=== PATIENT | female | born 1990 | race Caucasian/White ===

== ENCOUNTER 2023-07-20 07:43 | Emergency (ER) | payer MEDICAID ==
[~2023-07-20] VITALS: Ht 157.5 cm; Wt 61.8 kg
[~2023-07-20 07:43] MED LIST: ONDA4TAB12 PO
[2023-07-20 07:47] VITALS: TEMP 98.7
[2023-07-20 08:19] LABS: URINE HCG NEGATIVE (NEG)
[2023-07-20 08:22] LABS: BILIRUBIN,URINE MODERATE (Neg); CLARITY,URINE CLOUDY (Clear); COLOR,URINE YELLOW (Yellow); GLUCOSE, URINE NEGATIVE (Neg); KETONES,URINE >=80 mg/dl (Neg); LEUKOCYTE ESTERASE ,URINE TRACE (Neg); NITRITES, URINE NEGATIVE (Neg); OCCULT BLOOD,URINE MODERATE (Neg); PROTEIN,URINE 30 mg/dl (Neg)
[2023-07-20 08:32] LABS: BASOPHILS % (AUTO) 0.6 % (0-1); EOSINOPHILS # (AUTO) 0.1 X10'3 (0-0.9); EOSINOPHILS % (AUTO) 2.1 % (0-6); HEMATOCRIT 39.2 % (35.0-45.0); HEMOGLOBIN 13.6 g/dl (12.0-16.0); LYMPHOCYTES # (AUTO) 1.9 X10'3 (1.1-4.8); LYMPHOCYTES % (AUTO) 28.5 % (21-51); MEAN CORPUSCULAR HEMOGLOBIN 31.9 PG (27.0-31.0); MEAN CORPUSCULAR HGB CONC 34.6 g/dL (33.0-36.5); MEAN PLATELET VOLUME 9.3 FL (7.4-10.4); MONOCYTES # (AUTO) 0.5 X10'3 (0-0.9); MONOCYTES % (AUTO) 7.6 % (2-12); NEUTROPHILS % (AUTO) 61.2 % (42-75); PLATELET COUNT 229 X10'3 (140-440); RED BLOOD COUNT 4.26 X10'6 (4.20-5.60); RED CELL DISTRIBUTION WIDTH 12.9 % (11.5-14.5); WHITE BLOOD COUNT 6.5 X10'3 (4.5-11.0)
[2023-07-20 08:38] LABS: UA COLLECTION TYPE CLN CATCH MIDSTREAM
[2023-07-20 08:39] LABS: MUCUS STRANDS MANY /LPF (Neg); SQUAMOUS EPITHELIAL CELL,UR MANY /LPF (FEW)
[2023-07-20 08:40] LABS: CAL OXALATE CRYSTALS 2+ /HPF (NEGATIVE)
[2023-07-20 08:41] LABS: BACTERIA,URINE 1+ /HPF (Neg); HYALINE CASTS 0-3 /LPF (NEGATIVE)
[2023-07-20 08:42] LABS: ALANINE AMINOTRANSFERASE 28 U/L (12-78); ALBUMIN 4.4 G/DL (3.4-5.0); ALBUMIN/GLOBULIN RATIO 1.4 (1.1-1.5); ALKALINE PHOSPHATASE 73 IU/L (46-116); ANION GAP 10 (8-16); ASPARTATE AMINO TRANSFERASE 18 U/L (10-37); BILIRUBIN,TOTAL 0.8 MG/DL (0.1-1.0); BLOOD UREA NITROGEN 16 MG/DL (7-18); CALCIUM 9.7 MG/DL (8.5-10.1); CHLORIDE 105 MMOL/L (99-107); CREATININE 1.14 MG/DL (0.40-0.90); GLUCOSE 97 MG/DL (70-104); LIPASE 50 U/L (73-393); SODIUM 143 MMOL/L (135-145); TOTAL CARBON DIOXIDE 28.4 MMOL/L (24-32); TOTAL PROTEIN 7.6 G/DL (6.4-8.2); eCRCL 57 ML/MIN; eGFR 56 ML/MIN
[2023-07-20 08:55] LABS: POTASSIUM 2.9 MMOL/L (3.5-5.1)
[2023-07-20] MEDS: normal saline 1000ML IV soln IVB ONE ×2 (09:21→10:30)
[2023-07-20] MEDS: ondansetron/PF 4mg/2ml inj IV ONE (09:34)
[2023-07-20] MEDS: ketorolac trometh. 30mg/ml inj. IV ONE (09:35)
[2023-07-20] MEDS: potassium Cl 40MEQ/1/2NS 520ml 520 ML IV ONE (10:01)
[2023-07-20 10:02] VITALS: BP 140/94; PULSE 73; RESP 19; O2SAT 99
[2023-07-20] MEDS: CefTRIAXone 2gm/D5W 50ml BAG 50 ML IV ONE (11:58)
[2023-07-20] MEDS ORDERED: ONDA4TAB12 PO (12:12)
[2023-07-20] MEDS ORDERED: CEPH-585 PO (12:12)
== END 2023-07-20 13:05 | disposition home or self-care (01) ==
LOC: ER 07:43
DX: N39.0 Urinary tract infection, site not specified (principal); E87.6 Hypokalemia; R10.13 Epigastric pain; Z79.2 Long term (current) use of antibiotics
CPT/HCPCS: 36415; 74176; 80053; 81001; 81025; 83690; 85025; 96365; 96367; 96375; 99285; J0696; J1885; J2405; J3480; J7030

== ENCOUNTER 2023-08-17 07:37 | Emergency (ER) | payer MEDICAID ==
[~2023-08-17] VITALS: Ht 157.5 cm; Wt 61.4 kg
[~2023-08-17 07:37] MED LIST changes: +CEPH-585 PO; +DICY10CA88 PO; +FAMO-128 PO; +METO5TAB85 PO; +PANT-47 PO; +SIME125C PO; +SUCR1ORA12 PO
--- NOTE | 2023-08-17 07:48 | NUR ---
floating checking to see if there is anything i can help with awaiting lab draw
[2023-08-17 08:07] VITALS: TEMP 98.6
--- NOTE | 2023-08-17 08:16 | NUR ---
Evan adams in [place] - 08/17/23 at 0908 by GARETH floating and will help nurse as needed with patient
[2023-08-17 08:33] LABS: EOSINOPHILS # (AUTO) 0.1 X10'3 (0-0.9); EOSINOPHILS % (AUTO) 2.6 % (0-6); HEMATOCRIT 38.8 % (35.0-45.0); HEMOGLOBIN 13.4 g/dl (12.0-16.0); LYMPHOCYTES # (AUTO) 1.1 X10'3 (1.1-4.8); LYMPHOCYTES % (AUTO) 26.9 % (21-51); MEAN CORPUSCULAR HEMOGLOBIN 32.1 PG (27.0-31.0); MEAN CORPUSCULAR HGB CONC 34.6 g/dL (33.0-36.5); MEAN CORPUSCULAR VOLUME 92.9 FL (78-98); MONOCYTES # (AUTO) 0.3 X10'3 (0-0.9); MONOCYTES % (AUTO) 6.7 % (2-12); NEUTROPHILS # (AUTO) 2.6 X10'3 (1.8-7.7); NEUTROPHILS % (AUTO) 62.8 % (42-75); PLATELET COUNT 199 X10'3 (140-440); RED BLOOD COUNT 4.18 X10'6 (4.20-5.60); RED CELL DISTRIBUTION WIDTH 13.7 % (11.5-14.5); WHITE BLOOD COUNT 4.1 X10'3 (4.5-11.0)
[2023-08-17 08:45] LABS: ALANINE AMINOTRANSFERASE 21 U/L (12-78); ALBUMIN 4.4 G/DL (3.4-5.0); ALBUMIN/GLOBULIN RATIO 1.4 (1.1-1.5); ALKALINE PHOSPHATASE 63 IU/L (46-116); ANION GAP 8 (8-16); ASPARTATE AMINO TRANSFERASE 14 U/L (10-37); BILIRUBIN,TOTAL 0.8 MG/DL (0.1-1.0); BLOOD UREA NITROGEN 10 MG/DL (7-18); BUN/CREATININE RATIO 14.1 (10.0-20.0); CALCIUM 9.4 MG/DL (8.5-10.1); CHLORIDE 103 MMOL/L (99-107); CREATININE 0.71 MG/DL (0.40-0.90); GLUCOSE 89 MG/DL (70-104); PRO BRAIN NATRIURETIC PEPTIDE < 30 PG/ML (0-125); SODIUM 141 MMOL/L (135-145); TOTAL CARBON DIOXIDE 30.3 MMOL/L (24-32); TOTAL PROTEIN 7.6 G/DL (6.4-8.2); eCRCL 92 ML/MIN; eGFR > 90 ML/MIN
[2023-08-17 08:49] LABS: POTASSIUM 2.7 MMOL/L (3.5-5.1)
[2023-08-17] MEDS ORDERED: potassium Cl 20 mEq SR tablet PO STA (09:00)
[2023-08-17] MEDS ORDERED: potassium Cl 40MEQ/1/2NS 520ml 520 ML IV PRN (09:00)
--- NOTE | 2023-08-17 09:08 | NUR ---
Evan adams in [place] - 08/17/23 at 0908 by GARETH floating will help with patient as needed
[2023-08-17 09:45] LABS: FREE T4 (FREE THYROXINE) 1.38 NG/DL (0.73-1.40); MAGNESIUM 1.8 MG/DL (1.5-2.4); THYROID STIMULATING HORMONE 1.36 ulU/ml (0.34-4.50)
[2023-08-17 14:49] LABS: ALBUMIN 4.1 G/DL (3.4-5.0); ANION GAP 7 (8-16); BLOOD UREA NITROGEN 8 MG/DL (7-18); BUN/CREATININE RATIO 13.1 (10.0-20.0); CALCIUM 9.4 MG/DL (8.5-10.1); CHLORIDE 104 MMOL/L (99-107); CREATININE 0.61 MG/DL (0.40-0.90); GLUCOSE 80 MG/DL (70-104); POTASSIUM 3.2 MMOL/L (3.5-5.1); SODIUM 141 MMOL/L (135-145); TOTAL CARBON DIOXIDE 29.8 MMOL/L (24-32); eCRCL 107 ML/MIN; eGFR > 90 ML/MIN
--- NOTE | 2023-08-17 15:16 | NUR ---
DISCUSSED PTS LOW K LEVEL OF 3.2 PRIOR TO DC WITH DR BORDEN. PER DR BORDEN PT SHOULD TAKE HER HOME POTASSIUM SUPPLEMENTS 16 MEQ DAILY FOR ONE WEEK FOLLOWED BY A RETURN TO 8MEQ DAILY. PT VERBALIZED UNDERSTANDING AND CONFIRMED THAT SHE HAS THE SUPPLEMENTS AT HOME TO TAKE
[2023-08-17 15:26] VITALS: BP 133/88; PULSE 73; RESP 14; O2SAT 99
== END 2023-08-17 15:34 | disposition home or self-care (01) ==
LOC: ER 07:37
DX: E87.6 Hypokalemia (principal); R00.2 Palpitations; Z79.899 Other long term (current) drug therapy
CPT/HCPCS: 36415; 71045; 80048; 80053; 83735; 83880; 84439; 84443; 84484; 85025; 93005; 96365; 96366; 99285; J3480; J3490; 99281

== ENCOUNTER 2023-10-08 09:02 | Emergency (ER) | payer MEDICAID ==
[~2023-10-08] VITALS: Ht 157.5 cm; Wt 59.1 kg
[2023-10-08] MEDS ORDERED: normal saline 1000ml 1,000 ML IV ONE ×2 (10:00→11:00)
[2023-10-08] MEDS ORDERED: LORazepam 2 mg/ml vial IV ONE (10:00)
[2023-10-08 10:31] LABS: BASOPHILS % (AUTO) 0.8 % (0-1); EOSINOPHILS # (AUTO) 0.1 X10'3 (0-0.9); EOSINOPHILS % (AUTO) 1.5 % (0-6); HEMATOCRIT 38.1 % (35.0-45.0); LYMPHOCYTES # (AUTO) 0.7 X10'3 (1.1-4.8); LYMPHOCYTES % (AUTO) 15.3 % (21-51); MEAN CORPUSCULAR HEMOGLOBIN 32.4 PG (27.0-31.0); MEAN CORPUSCULAR HGB CONC 34.2 g/dL (33.0-36.5); MEAN CORPUSCULAR VOLUME 94.8 FL (78-98); MEAN PLATELET VOLUME 9.4 FL (7.4-10.4); MONOCYTES # (AUTO) 0.3 X10'3 (0-0.9); NEUTROPHILS # (AUTO) 3.3 X10'3 (1.8-7.7); NEUTROPHILS % (AUTO) 76.4 % (42-75); PLATELET COUNT 170 X10'3 (140-440); RED BLOOD COUNT 4.02 X10'6 (4.20-5.60); RED CELL DISTRIBUTION WIDTH 13.5 % (11.5-14.5); WHITE BLOOD COUNT 4.3 X10'3 (4.5-11.0)
[2023-10-08 10:40] LABS: D-DIMER 0.34 MG/L FEU (0-0.50)
[2023-10-08 10:44] LABS: ALANINE AMINOTRANSFERASE 14 U/L (12-78); ALBUMIN/GLOBULIN RATIO 1.3 (1.1-1.5); ALKALINE PHOSPHATASE 57 IU/L (46-116); ANION GAP 9 (8-16); ASPARTATE AMINO TRANSFERASE 9 U/L (10-37); BILIRUBIN,TOTAL 0.5 MG/DL (0.1-1.0); BLOOD UREA NITROGEN 9 MG/DL (7-18); BUN/CREATININE RATIO 12.9 (10.0-20.0); CHLORIDE 107 MMOL/L (99-107); GLUCOSE 92 MG/DL (70-104); SODIUM 141 MMOL/L (135-145); TOTAL CARBON DIOXIDE 25.1 MMOL/L (24-32); TOTAL PROTEIN 7.1 G/DL (6.4-8.2); eCRCL 93 ML/MIN; eGFR > 90 ML/MIN
[2023-10-08 10:58] LABS: FREE T4 (FREE THYROXINE) 1.21 NG/DL (0.73-1.40); MAGNESIUM 2.1 MG/DL (1.5-2.4); PRO BRAIN NATRIURETIC PEPTIDE < 30 PG/ML (0-125); THYROID STIMULATING HORMONE 0.85 ulU/ml (0.34-4.50)
[2023-10-08] MEDS ORDERED: POTASSIUM BICARB 20meq eff tab 20 MEQ TABLET.EFF PO ONE (11:00)
[2023-10-08] MEDS ORDERED: CefTRIAXone 2gm/D5W 50ml BAG 50 ML IV ONE (11:05)
--- NOTE | 2023-10-08 11:28 | NUR ---
Cancelled Rocephin IV ordered per Dr. Joyce
[2023-10-08 11:47] VITALS: BP 119/83; PULSE 83; RESP 15; O2SAT 100
[2023-10-08 12:06] LABS: URINE HCG NEGATIVE (NEG)
[2023-10-08 12:08] LABS: BILIRUBIN,URINE NEGATIVE (Neg); CLARITY,URINE CLOUDY (Clear); COLOR,URINE YELLOW (Yellow); GLUCOSE, URINE NEGATIVE (Neg); KETONES,URINE TRACE mg/dl (Neg); LEUKOCYTE ESTERASE ,URINE LARGE (Neg); NITRITES, URINE POSITIVE (Neg); OCCULT BLOOD,URINE TRACE-INTACT (Neg); PH,URINE 6.5 (4.8-8.0); PROTEIN,URINE NEGATIVE (Neg)
[2023-10-08 12:15] LABS: UA COLLECTION TYPE CLN CATCH MIDSTREAM
[2023-10-08 12:17] LABS: BACTERIA,URINE 4+ /HPF (Neg); MUCUS STRANDS MANY /LPF (Neg); RBC,URINE 0-2 /HPF (0-2); SQUAMOUS EPITHELIAL CELL,UR MANY /LPF (FEW); TRANSITIONAL EPI CELLS,URINE FEW /HPF; WBC,URINE 20-30 /HPF (0-4)
[2023-10-08 12:19] LABS: URINE AMPHETAMINE SCREEN NEGATIVE (Neg); URINE BARBITUATE SCREEN NEGATIVE (Neg); URINE METHADONE SCREEN NEGATIVE (Neg)
[2023-10-08 12:20] LABS: URINE BENZODIAZEPINES SCREEN NEGATIVE (Neg); URINE CANNABINOID SCREEN POSITIVE (Neg); URINE COCAINE SCREEN NEGATIVE (Neg); URINE OPIATE SCREEN NEGATIVE (Neg); URINE PHENCYCLIDINE SCREEN NEGATIVE (Neg)
== END 2023-10-08 12:06 | disposition home or self-care (01) ==
LOC: ER 09:02
DX: F41.9 Anxiety disorder, unspecified (principal); E87.6 Hypokalemia
CPT/HCPCS: 36415; 71045; 80053; 80305; 81001; 81025; 83735; 83880; 84439; 84443; 84484; 85025; 85379; 87040; 93005; 96360; 99285; J7030